=== PATIENT | female | born 1940 | race Caucasian/White ===

== ENCOUNTER 2020-03-24 09:02 | Inpatient (IN) ==
[2020-03-24] MEDS: Mirtazapine 15 MG TABLET PO SCH (23:05)
[2020-03-24] MEDS: Gabapentin 300 MG CAPSULE PO SCH (23:05)
[2020-03-24] MEDS: Amoxicillin 500 MG CAPSULE PO SCH (23:06)
[2020-03-25 05:48] LABS: Basophils % 0.1 %; Eosinophils % 0.5 %; Hematocrit 39.3 % (35.3-44.9); Hemoglobin 13.1 g/dL (11.5-15.4); Immature Granulocytes % 0.4 % (0-4); Mean Corpuscular HGB Conc 33.3 g/dL (31.6-35.5); Mean Corpuscular Hemoglobin 31.6 pg (28.0-33.3); Mean Corpuscular Volume 94.7 fL (83.0-100.0); Mean Platelet Volume 9.3 fL (9.4-12.4); Monocytes # 0.4 K/mcL (0.0-1.3); Monocytes % 5.3 %; Neutrophils # 5.7 K/mcL (1.6-8.9); Platelet Count 294 K/mcL (140-400); Red Blood Count 4.15 M/mcL (3.82-4.97); Red Cell Distribution Width 15.2 % (11.5-14.5); Segmented Neutrophils % 69.7 %; White Blood Count 8.2 K/mcL (4.3-11.1)
[2020-03-25 06:07] LABS: BUN/Creatinine Ratio 30 (6-26); Blood Urea Nitrogen 20 mg/dL (8-23); Calcium 9.4 mg/dL (8.6-10.3); Carbon Dioxide 29 mEq/L (23-29); Chloride 102 mEq/L (98-107); Glucose 95 mg/dL (70-105); Osmolality,Calculated 286 (280-300); Potassium 3.8 mEq/L (3.5-5.1); Sodium 137 mEq/L (136-145); eGFR For African Americans > 60 (> 60); eGFR For Non-African Americans > 60 (> 60)
[2020-03-25] MEDS: Aspirin Enteric Coated 81 MG Tablet PO SCH (10:43)
[2020-03-25] MEDS: Amoxicillin 500 MG CAPSULE PO SCH ×2 (10:43→22:13)
[2020-03-25] MEDS: Gabapentin 300 MG CAPSULE PO SCH ×3 (10:43→22:41)
[2020-03-25] MEDS: Acetaminophen 325 MG TABLET PO PRN (13:11)
[2020-03-25] MEDS ORDERED: Albuterol 2.5 MG/3 ML NEBULIZER IH PRN (16:45)
[2020-03-25] MEDS: Mirtazapine 15 MG TABLET PO SCH (22:13)
[2020-03-26 04:59] LABS: Basophils % 0.4 %; Eosinophils # 0.1 K/mcL (0.0-0.6); Eosinophils % 0.9 %; Hematocrit 40.7 % (35.3-44.9); Hemoglobin 13.6 g/dL (11.5-15.4); Immature Granulocytes % 0.4 % (0-4); Lymphocytes # 2.6 K/mcL (0.6-4.6); Mean Corpuscular HGB Conc 33.4 g/dL (31.6-35.5); Mean Corpuscular Hemoglobin 31.9 pg (28.0-33.3); Mean Corpuscular Volume 95.3 fL (83.0-100.0); Mean Platelet Volume 9.5 fL (9.4-12.4); Monocytes # 0.5 K/mcL (0.0-1.3); Monocytes % 5.4 %; Neutrophils # 5.8 K/mcL (1.6-8.9); Platelet Count 304 K/mcL (140-400); Red Blood Count 4.27 M/mcL (3.82-4.97); Red Cell Distribution Width 15.5 % (11.5-14.5); Segmented Neutrophils % 63.9 %; White Blood Count 9.1 K/mcL (4.3-11.1)
[2020-03-26] MEDS: *HR* Enoxaparin 40 MG/0.4 ML SYRINGE SQ SCH (05:13)
[2020-03-26 05:19] LABS: Alanine Aminotransferase 18 Units/L (7-52); Albumin 3.7 g/dL (3.5-5.7); Albumin/Globulin Ratio 1.4 (1.1-2.2); Alkaline Phosphatase 69 Units/L (34-104); Aspartate Amino Transferase 21 Units/L (13-39); BUN/Creatinine Ratio 32 (6-26); Bilirubin,Total 0.4 mg/dL (0.3-1.0); Blood Urea Nitrogen 20 mg/dL (8-23); Calcium 9.4 mg/dL (8.6-10.3); Carbon Dioxide 26 mEq/L (23-29); Chloride 104 mEq/L (98-107); Globulin 2.7 g/dL (2.4-3.5); Glucose 115 mg/dL (70-105); Osmolality,Calculated 290 (280-300); Potassium 3.9 mEq/L (3.5-5.1); Sodium 138 mEq/L (136-145); Total Protein 6.4 g/dL (6.4-8.9); eGFR For African Americans > 60 (> 60); eGFR For Non-African Americans > 60 (> 60)
[2020-03-26] MEDS: Gabapentin 300 MG CAPSULE PO SCH ×3 (08:11→20:38)
[2020-03-26] MEDS: Amoxicillin 500 MG CAPSULE PO SCH ×2 (08:11→20:37)
[2020-03-26] MEDS: Aspirin Enteric Coated 81 MG Tablet PO SCH (08:11)
[2020-03-26 15:10] LABS: C-Reactive Protein < 5 mg/L (Less than 10); Ferritin 33 ng/mL (10-120)
[2020-03-26] MEDS: Mirtazapine 15 MG TABLET PO SCH (20:37)
[2020-03-27] MEDS: *HR* Enoxaparin 40 MG/0.4 ML SYRINGE SQ SCH (06:11)
[2020-03-27] MEDS: Aspirin Enteric Coated 81 MG Tablet PO SCH (10:45)
[2020-03-27] MEDS: Gabapentin 300 MG CAPSULE PO SCH ×3 (11:05→22:33)
[2020-03-27] MEDS: Aspirin 81 MG TAB.CHEW PO SCH (11:06)
[2020-03-27] MEDS: Acetaminophen 325 MG TABLET PO PRN ×2 (11:06→22:33)
[2020-03-27] MEDS: Amoxicillin 500 MG CAPSULE PO SCH ×2 (11:06→22:33)
[2020-03-27] MEDS: Nystatin SUSP 5 ML UD.LIQ PO SCH (22:33)
[2020-03-27] MEDS: Mirtazapine 15 MG TABLET PO SCH (22:33)
[2020-03-28] MEDS: *HR* Enoxaparin 40 MG/0.4 ML SYRINGE SQ SCH (06:32)
[2020-03-28] MEDS: Nystatin SUSP 5 ML UD.LIQ PO SCH ×4 (09:26→22:11)
[2020-03-28] MEDS: Aspirin 81 MG TAB.CHEW PO SCH (09:26)
[2020-03-28] MEDS: Amoxicillin 500 MG CAPSULE PO SCH ×2 (09:26→22:11)
[2020-03-28] MEDS: Gabapentin 300 MG CAPSULE PO SCH ×3 (09:27→22:11)
[2020-03-28 13:18] LABS: Hematocrit 42.2 % (35.3-44.9); Mean Corpuscular HGB Conc 33.2 g/dL (31.6-35.5); Mean Corpuscular Hemoglobin 31.9 pg (28.0-33.3); Mean Corpuscular Volume 96.1 fL (83.0-100.0); Mean Platelet Volume 9.3 fL (9.4-12.4); Platelet Count 305 K/mcL (140-400); Red Blood Count 4.39 M/mcL (3.82-4.97); Red Cell Distribution Width 15.1 % (11.5-14.5); White Blood Count 8.6 K/mcL (4.3-11.1)
[2020-03-28 13:37] LABS: Alanine Aminotransferase 14 Units/L (7-52); Albumin 3.7 g/dL (3.5-5.7); Albumin/Globulin Ratio 1.3 (1.1-2.2); Alkaline Phosphatase 69 Units/L (34-104); Aspartate Amino Transferase 11 Units/L (13-39); BUN/Creatinine Ratio 39 (6-26); Bilirubin,Total 0.5 mg/dL (0.3-1.0); Blood Urea Nitrogen 28 mg/dL (8-23); Calcium 9.4 mg/dL (8.6-10.3); Carbon Dioxide 28 mEq/L (23-29); Chloride 104 mEq/L (98-107); Globulin 2.8 g/dL (2.4-3.5); Glucose 128 mg/dL (70-105); Magnesium 2.1 mg/dL (1.6-2.6); Osmolality,Calculated 293 (280-300); Potassium 3.8 mEq/L (3.5-5.1); Sodium 138 mEq/L (136-145); Total Protein 6.5 g/dL (6.4-8.9); eGFR For African Americans > 60 (> 60); eGFR For Non-African Americans > 60 (> 60)
[2020-03-28 13:48] LABS: Bilirubin,Urine Negative (Negative); Blood,Urine Moderate (Negative); Clarity,Urine Clear (Clear); Color,Urine Yellow (Yellow); Glucose,Urine (UA) Normal (Normal); Ketones,Urine Negative (Negative); Leukocyte Esterase,Urine Negative (Negative); Nitrite,Urine Negative (Negative); PH,Urine 5.5 pH Units (5.0-8.0); Protein,Urine Negative (Neg-Trace); Specific Gravity,Urine >= 1.030 (1.010-1.025); Urobilinogen,Urine Normal (Normal)
[2020-03-28 13:55] LABS: Squamous Epithelial Cell,Urine Many per hpf (None-Few)
[2020-03-28] MEDS: 0.9 % Sodium Chloride 1,000 ML IVC SCH (16:19)
[2020-03-28 19:58] LABS: Ferritin 54 ng/mL (10-120)
[2020-03-28] MEDS: Mirtazapine 15 MG TABLET PO SCH (22:11)
[2020-03-29] MEDS: 0.9 % Sodium Chloride 1,000 ML IVC SCH ×2 (02:32→13:18)
[2020-03-29] MEDS: *HR* Enoxaparin 40 MG/0.4 ML SYRINGE SQ SCH (06:29)
[2020-03-29] MEDS: Gabapentin 300 MG CAPSULE PO SCH ×3 (08:44→20:45)
[2020-03-29] MEDS: Amoxicillin 500 MG CAPSULE PO SCH ×2 (08:44→20:45)
[2020-03-29] MEDS: Aspirin 81 MG TAB.CHEW PO SCH (08:45)
[2020-03-29] MEDS: Nystatin SUSP 5 ML UD.LIQ PO SCH ×4 (08:45→20:45)
[2020-03-29] MEDS: Acetaminophen 325 MG TABLET PO PRN (13:25)
[2020-03-29] MEDS: Mirtazapine 15 MG TABLET PO SCH (20:45)
[2020-03-29 21:04] LABS: ABG Base Excess 0 mEq/L (-2 to 3); ABG HCO3 25 mEq/L (21-27); ABG Oxygen Saturation 96 % (95-98); ABG PCO2 44 mmHg (35-45); ABG PH 7.37 pH Units (7.32-7.45); ABG PO2 83 mmHg (85-104); ABG TCO2 27 mEq/L (20-26)
[2020-03-30] MEDS: 0.9 % Sodium Chloride 1,000 ML IVC SCH (01:10)
[2020-03-30] MEDS: *HR* Enoxaparin 40 MG/0.4 ML SYRINGE SQ SCH (05:56)
[2020-03-30] MEDS: Acetaminophen 325 MG TABLET PO PRN (06:34)
[2020-03-30] MEDS: Gabapentin 300 MG CAPSULE PO SCH ×3 (09:34→21:12)
[2020-03-30] MEDS: Aspirin 81 MG TAB.CHEW PO SCH (09:34)
[2020-03-30] MEDS: Nystatin SUSP 5 ML UD.LIQ PO SCH ×4 (09:34→21:12)
[2020-03-30] MEDS: Amoxicillin 500 MG CAPSULE PO SCH ×2 (09:35→21:12)
[2020-03-30] MEDS: Mirtazapine 15 MG TABLET PO SCH (21:12)
[2020-03-31] MEDS: *HR* Enoxaparin 40 MG/0.4 ML SYRINGE SQ SCH (06:18)
[2020-03-31] MEDS: Aspirin 81 MG TAB.CHEW PO SCH (12:47)
[2020-03-31] MEDS: Gabapentin 300 MG CAPSULE PO SCH ×3 (12:48→20:44)
[2020-03-31] MEDS: Amoxicillin 500 MG CAPSULE PO SCH ×2 (12:48→20:44)
[2020-03-31] MEDS: Nystatin SUSP 5 ML UD.LIQ PO SCH ×3 (12:49→20:43)
[2020-03-31] MEDS: Mirtazapine 15 MG TABLET PO SCH (20:48)
[2020-04-01] MEDS: *HR* Enoxaparin 40 MG/0.4 ML SYRINGE SQ SCH (06:08)
[2020-04-01] MEDS: 0.9 % Sodium Chloride 1,000 ML IVC SCH (07:47)
[2020-04-01] MEDS: Nystatin SUSP 5 ML UD.LIQ PO SCH ×5 (07:47→20:40)
[2020-04-01] MEDS: Gabapentin 300 MG CAPSULE PO SCH ×3 (10:32→20:38)
[2020-04-01] MEDS: Aspirin 81 MG TAB.CHEW PO SCH (10:32)
[2020-04-01] MEDS: Amoxicillin 500 MG CAPSULE PO SCH ×2 (10:32→20:37)
[2020-04-01] MEDS: Acetaminophen 325 MG TABLET PO PRN (10:33)
[2020-04-01] MEDS: Mirtazapine 15 MG TABLET PO SCH (20:39)
[2020-04-02] MEDS: *HR* Enoxaparin 40 MG/0.4 ML SYRINGE SQ SCH (05:14)
[2020-04-02] MEDS: Nystatin SUSP 5 ML UD.LIQ PO SCH ×4 (08:29→19:49)
[2020-04-02] MEDS: Amoxicillin 500 MG CAPSULE PO SCH ×2 (08:29→19:47)
[2020-04-02] MEDS: Aspirin 81 MG TAB.CHEW PO SCH (08:29)
[2020-04-02] MEDS: Gabapentin 300 MG CAPSULE PO SCH ×3 (08:29→19:48)
[2020-04-02] MEDS: Acetaminophen 325 MG TABLET PO PRN (08:38)
[2020-04-02] MEDS: Mirtazapine 15 MG TABLET PO SCH (19:45)
[2020-04-03 05:08] LABS: Basophils % 0.5 %; Eosinophils # 0.2 K/mcL (0.0-0.6); Eosinophils % 2.1 %; Hematocrit 38.5 % (35.3-44.9); Hemoglobin 12.7 g/dL (11.5-15.4); Immature Granulocytes % 0.3 % (0-4); Lymphocytes # 1.7 K/mcL (0.6-4.6); Lymphocytes % 19.3 %; Mean Corpuscular Hemoglobin 31.7 pg (28.0-33.3); Mean Platelet Volume 9.7 fL (9.4-12.4); Monocytes # 0.5 K/mcL (0.0-1.3); Monocytes % 6.1 %; Neutrophils # 6.2 K/mcL (1.6-8.9); Platelet Count 282 K/mcL (140-400); Red Blood Count 4.01 M/mcL (3.82-4.97); Red Cell Distribution Width 14.4 % (11.5-14.5); Segmented Neutrophils % 71.7 %; White Blood Count 8.7 K/mcL (4.3-11.1)
[2020-04-03] MEDS: *HR* Enoxaparin 40 MG/0.4 ML SYRINGE SQ SCH (05:17)
[2020-04-03 05:19] LABS: BUN/Creatinine Ratio 37 (6-26); Blood Urea Nitrogen 21 mg/dL (8-23); Calcium 9.4 mg/dL (8.6-10.3); Carbon Dioxide 28 mEq/L (23-29); Chloride 106 mEq/L (98-107); Glucose 106 mg/dL (70-105); Osmolality,Calculated 295 (280-300); Potassium 3.7 mEq/L (3.5-5.1); Sodium 141 mEq/L (136-145); eGFR For African Americans > 60 (> 60); eGFR For Non-African Americans > 60 (> 60)
[2020-04-03] MEDS: Amoxicillin 500 MG CAPSULE PO SCH (09:33)
[2020-04-03] MEDS: Aspirin 81 MG TAB.CHEW PO SCH (09:33)
[2020-04-03] MEDS: Nystatin SUSP 5 ML UD.LIQ PO SCH ×4 (09:34→20:23)
[2020-04-03] MEDS: Gabapentin 300 MG CAPSULE PO SCH ×3 (09:34→20:20)
[2020-04-03] MEDS: Acetaminophen 325 MG TABLET PO PRN (15:33)
[2020-04-03] MEDS: Mirtazapine 15 MG TABLET PO SCH (20:22)
[2020-04-04] MEDS: *HR* Enoxaparin 40 MG/0.4 ML SYRINGE SQ SCH (05:24)
[2020-04-04] MEDS: Nystatin SUSP 5 ML UD.LIQ PO SCH ×4 (08:24→20:02)
[2020-04-04] MEDS: Acetaminophen 325 MG TABLET PO PRN ×2 (08:24→21:14)
[2020-04-04] MEDS: Gabapentin 300 MG CAPSULE PO SCH ×3 (08:24→20:02)
[2020-04-04] MEDS: Aspirin 81 MG TAB.CHEW PO SCH (08:24)
[2020-04-04] MEDS ORDERED: E-Z-HD (BARIUM SULF) SUSPENSION PO ONE (13:24)
[2020-04-04] MEDS ORDERED: E-Z-PAQUE (BARIUM SULF) SUSP 1 BOTTLE PO ONE (13:24)
[2020-04-04] MEDS: Mirtazapine 15 MG TABLET PO SCH (20:02)
[2020-04-05] MEDS: *HR* Enoxaparin 40 MG/0.4 ML SYRINGE SQ SCH (05:25)
[2020-04-05] MEDS: Gabapentin 300 MG CAPSULE PO SCH ×3 (08:55→22:13)
[2020-04-05] MEDS: Nystatin SUSP 5 ML UD.LIQ PO SCH ×4 (08:55→22:15)
[2020-04-05] MEDS: Aspirin 81 MG TAB.CHEW PO SCH (08:55)
[2020-04-05] MEDS: Acetaminophen 325 MG TABLET PO PRN ×2 (09:05→22:14)
[2020-04-05] MEDS: Mirtazapine 15 MG TABLET PO SCH (22:13)
[2020-04-06] MEDS: *HR* Enoxaparin 40 MG/0.4 ML SYRINGE SQ SCH (06:48)
[2020-04-06] MEDS: Aspirin 81 MG TAB.CHEW PO SCH (08:50)
[2020-04-06] MEDS: Gabapentin 300 MG CAPSULE PO SCH ×3 (08:50→19:41)
[2020-04-06] MEDS: Nystatin SUSP 5 ML UD.LIQ PO SCH (08:50)
[2020-04-06] MEDS: Acetaminophen 325 MG TABLET PO PRN ×2 (08:55→19:41)
[2020-04-06] MEDS: Mirtazapine 15 MG TABLET PO SCH (19:42)
[2020-04-07] MEDS: *HR* Enoxaparin 40 MG/0.4 ML SYRINGE SQ SCH (05:52)
[2020-04-07] MEDS: Acetaminophen 325 MG TABLET PO PRN ×2 (06:06→20:57)
[2020-04-07] MEDS: Gabapentin 300 MG CAPSULE PO SCH ×3 (09:32→21:02)
[2020-04-07] MEDS: Aspirin 81 MG TAB.CHEW PO SCH (09:32)
[2020-04-07] MEDS: Mirtazapine 15 MG TABLET PO SCH (21:02)
[2020-04-08 06:02] LABS: Hematocrit 32.5 % (35.3-44.9); Hemoglobin 10.6 g/dL (11.5-15.4); Mean Corpuscular HGB Conc 32.6 g/dL (31.6-35.5); Mean Corpuscular Hemoglobin 31.5 pg (28.0-33.3); Mean Corpuscular Volume 96.7 fL (83.0-100.0); Mean Platelet Volume 10.1 fL (9.4-12.4); Platelet Count 230 K/mcL (140-400); Red Blood Count 3.36 M/mcL (3.82-4.97); Red Cell Distribution Width 14.4 % (11.5-14.5); White Blood Count 5.4 K/mcL (4.3-11.1)
[2020-04-08 07:31] LABS: BUN/Creatinine Ratio 33 (6-26); Blood Urea Nitrogen 20 mg/dL (8-23); Calcium 9.1 mg/dL (8.6-10.3); Carbon Dioxide 29 mEq/L (23-29); Chloride 105 mEq/L (98-107); Glucose 100 mg/dL (70-105); Osmolality,Calculated 293 (280-300); Potassium 3.7 mEq/L (3.5-5.1); Sodium 140 mEq/L (136-145); eGFR For African Americans > 60 (> 60); eGFR For Non-African Americans > 60 (> 60)
[2020-04-08] MEDS: Gabapentin 300 MG CAPSULE PO SCH ×3 (09:11→21:24)
[2020-04-08] MEDS: Aspirin 81 MG TAB.CHEW PO SCH (09:11)
[2020-04-08] MEDS: Acetaminophen 325 MG TABLET PO PRN ×2 (09:11→21:22)
[2020-04-08 19:06] LABS: Bilirubin,Urine Small (Negative); Blood,Urine Large (Negative); Clarity,Urine Clear (Clear); Color,Urine Yellow (Yellow); Glucose,Urine (UA) Normal (Normal); Ketones,Urine Negative (Negative); Leukocyte Esterase,Urine Trace (Negative); Nitrite,Urine Negative (Negative); PH,Urine 6.5 pH Units (5.0-8.0); Protein,Urine 30 mg/dL (Neg-Trace); Urobilinogen,Urine Normal (Normal)
[2020-04-08 19:46] LABS: RBC,Urine TNTC per hpf (0-3)
[2020-04-08 19:47] LABS: Bacteria,Urine Many per hpf (None-Few); Squamous Epithelial Cell,Urine Moderate per hpf (None-Few)
[2020-04-08] MEDS: Mirtazapine 15 MG TABLET PO SCH (21:23)
[2020-04-09] MEDS: Acetaminophen 325 MG TABLET PO PRN ×2 (06:27→20:14)
[2020-04-09] MEDS: Aspirin 81 MG TAB.CHEW PO SCH (08:32)
[2020-04-09] MEDS: Gabapentin 300 MG CAPSULE PO SCH ×3 (08:32→20:14)
[2020-04-09] MEDS: Sulfamethoxazole/Trimeth DS 1 EACH TABLET PO SCH ×2 (14:41→20:14)
[2020-04-09] MEDS: Mirtazapine 15 MG TABLET PO SCH (20:14)
[2020-04-10] MEDS: Acetaminophen 325 MG TABLET PO PRN ×2 (10:07→20:32)
[2020-04-10] MEDS: Gabapentin 300 MG CAPSULE PO SCH ×3 (10:08→20:33)
[2020-04-10] MEDS: Aspirin 81 MG TAB.CHEW PO SCH (10:08)
[2020-04-10] MEDS: Sulfamethoxazole/Trimeth DS 1 EACH TABLET PO SCH ×2 (10:08→20:33)
[2020-04-10] MEDS: Mirtazapine 15 MG TABLET PO SCH (20:33)
[2020-04-11] MEDS: Aspirin 81 MG TAB.CHEW PO SCH (09:51)
[2020-04-11] MEDS: Sulfamethoxazole/Trimeth DS 1 EACH TABLET PO SCH (09:51)
[2020-04-11] MEDS: Gabapentin 300 MG CAPSULE PO SCH ×3 (09:51→21:57)
[2020-04-11] MEDS: Acetaminophen 325 MG TABLET PO PRN ×2 (10:34→17:18)
[2020-04-11] MEDS: Nitrofurantoin (BID) 100 MG CAPSULE PO SCH ×2 (11:47→17:18)
[2020-04-11] MEDS: Mirtazapine 15 MG TABLET PO SCH (21:57)
[2020-04-12] MEDS: Aspirin 81 MG TAB.CHEW PO SCH (08:52)
[2020-04-12] MEDS: Gabapentin 300 MG CAPSULE PO SCH ×3 (08:52→20:34)
[2020-04-12] MEDS: Nitrofurantoin (BID) 100 MG CAPSULE PO SCH ×2 (08:53→16:34)
[2020-04-12] MEDS: Mirtazapine 15 MG TABLET PO SCH (20:34)
[2020-04-12] MEDS: Acetaminophen 325 MG TABLET PO PRN (20:35)
[2020-04-13] MEDS: Nitrofurantoin (BID) 100 MG CAPSULE PO SCH ×2 (09:48→16:13)
[2020-04-13] MEDS: Aspirin 81 MG TAB.CHEW PO SCH (09:48)
[2020-04-13] MEDS: Gabapentin 300 MG CAPSULE PO SCH ×3 (09:49→21:23)
[2020-04-13] MEDS: Acetaminophen 325 MG TABLET PO PRN (09:57)
[2020-04-13] MEDS: Mirtazapine 15 MG TABLET PO SCH (21:23)
[2020-04-14 06:22] LABS: Hemoglobin 9.8 g/dL (11.5-15.4); Mean Corpuscular HGB Conc 32.7 g/dL (31.6-35.5); Mean Corpuscular Hemoglobin 31.8 pg (28.0-33.3); Mean Corpuscular Volume 97.4 fL (83.0-100.0); Platelet Count 256 K/mcL (140-400); Red Blood Count 3.08 M/mcL (3.82-4.97); Red Cell Distribution Width 14.2 % (11.5-14.5); White Blood Count 8.7 K/mcL (4.3-11.1)
[2020-04-14 06:46] LABS: Alanine Aminotransferase 9 Units/L (7-52); Albumin 3.5 g/dL (3.5-5.7); Albumin/Globulin Ratio 1.4 (1.1-2.2); Alkaline Phosphatase 73 Units/L (34-104); Aspartate Amino Transferase 13 Units/L (13-39); BUN/Creatinine Ratio 22 (6-26); Blood Urea Nitrogen 13 mg/dL (8-23); Calcium 8.8 mg/dL (8.6-10.3); Carbon Dioxide 27 mEq/L (23-29); Chloride 102 mEq/L (98-107); Globulin 2.5 g/dL (2.4-3.5); Glucose 99 mg/dL (70-105); Magnesium 1.9 mg/dL (1.6-2.6); Osmolality,Calculated 282 (280-300); Potassium 3.8 mEq/L (3.5-5.1); Sodium 136 mEq/L (136-145); eGFR For African Americans > 60 (> 60); eGFR For Non-African Americans > 60 (> 60)
[2020-04-14 06:59] LABS: Bilirubin,Total 0.3 mg/dL (0.3-1.0)
[2020-04-14] MEDS: Aspirin 81 MG TAB.CHEW PO SCH (09:24)
[2020-04-14] MEDS: Nitrofurantoin (BID) 100 MG CAPSULE PO SCH ×2 (09:24→17:41)
[2020-04-14] MEDS: Gabapentin 300 MG CAPSULE PO SCH ×3 (09:24→22:20)
[2020-04-14] MEDS: Acetaminophen 325 MG TABLET PO PRN (13:41)
[2020-04-14] MEDS: Mirtazapine 15 MG TABLET PO SCH (22:21)
[2020-04-15] MEDS: Gabapentin 300 MG CAPSULE PO SCH ×3 (09:25→20:04)
[2020-04-15] MEDS: Acetaminophen 325 MG TABLET PO PRN ×2 (09:26→20:06)
[2020-04-15] MEDS: Nitrofurantoin (BID) 100 MG CAPSULE PO SCH ×2 (09:26→17:04)
[2020-04-15] MEDS: Aspirin 81 MG TAB.CHEW PO SCH (09:26)
[2020-04-15] MEDS: Mirtazapine 15 MG TABLET PO SCH (20:04)
[2020-04-16] MEDS: Gabapentin 300 MG CAPSULE PO SCH ×3 (09:55→20:44)
[2020-04-16] MEDS: Aspirin 81 MG TAB.CHEW PO SCH (09:55)
[2020-04-16] MEDS: Nitrofurantoin (BID) 100 MG CAPSULE PO SCH ×2 (09:55→16:12)
[2020-04-16] MEDS: Acetaminophen 325 MG TABLET PO PRN (10:23)
[2020-04-16] MEDS: Mirtazapine 15 MG TABLET PO SCH (20:44)
[2020-04-17] MEDS: Acetaminophen 325 MG TABLET PO PRN ×2 (11:05→22:13)
[2020-04-17] MEDS: Aspirin 81 MG TAB.CHEW PO SCH (11:05)
[2020-04-17] MEDS: Gabapentin 300 MG CAPSULE PO SCH ×3 (11:05→22:13)
[2020-04-17] MEDS: Nitrofurantoin (BID) 100 MG CAPSULE PO SCH ×2 (11:06→17:03)
[2020-04-17] MEDS: Mirtazapine 15 MG TABLET PO SCH (22:13)
[2020-04-18] MEDS: Acetaminophen 325 MG TABLET PO PRN ×2 (09:20→16:30)
[2020-04-18] MEDS: Nitrofurantoin (BID) 100 MG CAPSULE PO SCH (09:20)
[2020-04-18] MEDS: Gabapentin 300 MG CAPSULE PO SCH ×3 (09:20→20:28)
[2020-04-18] MEDS: Aspirin 81 MG TAB.CHEW PO SCH (09:20)
[2020-04-18] MEDS: Mirtazapine 15 MG TABLET PO SCH (20:28)
[2020-04-19] MEDS: Gabapentin 300 MG CAPSULE PO SCH ×3 (08:32→22:24)
[2020-04-19] MEDS: Aspirin 81 MG TAB.CHEW PO SCH (08:32)
[2020-04-19] MEDS: Acetaminophen 325 MG TABLET PO PRN (08:45)
[2020-04-19] MEDS: Mirtazapine 15 MG TABLET PO SCH (22:24)
[2020-04-20] MEDS: Aspirin 81 MG TAB.CHEW PO SCH (08:30)
[2020-04-20] MEDS: Gabapentin 300 MG CAPSULE PO SCH ×3 (08:30→22:20)
[2020-04-20] MEDS: Acetaminophen 325 MG TABLET PO PRN (08:39)
[2020-04-20 09:29] LABS: Basophils # 0.1 K/mcL (0.0-0.2); Basophils % 0.9 %; Eosinophils # 0.4 K/mcL (0.0-0.6); Eosinophils % 6.3 %; Hematocrit 33.9 % (35.3-44.9); Hemoglobin 11.1 g/dL (11.5-15.4); Immature Granulocytes % 0.1 % (0-4); Lymphocytes # 1.6 K/mcL (0.6-4.6); Lymphocytes % 23.7 %; Mean Corpuscular HGB Conc 32.7 g/dL (31.6-35.5); Mean Corpuscular Hemoglobin 32.4 pg (28.0-33.3); Mean Corpuscular Volume 98.8 fL (83.0-100.0); Mean Platelet Volume 9.5 fL (9.4-12.4); Monocytes # 0.5 K/mcL (0.0-1.3); Monocytes % 6.9 %; Neutrophils # 4.3 K/mcL (1.6-8.9); Platelet Count 334 K/mcL (140-400); Red Blood Count 3.43 M/mcL (3.82-4.97); Red Cell Distribution Width 13.7 % (11.5-14.5); Segmented Neutrophils % 62.1 %; White Blood Count 6.9 K/mcL (4.3-11.1)
[2020-04-20 09:45] LABS: BUN/Creatinine Ratio 17 (6-26); Blood Urea Nitrogen 12 mg/dL (8-23); Calcium 9.3 mg/dL (8.6-10.3); Carbon Dioxide 24 mEq/L (23-29); Chloride 103 mEq/L (98-107); Glucose 130 mg/dL (70-105); Osmolality,Calculated 284 (280-300); Sodium 136 mEq/L (136-145); eGFR For African Americans > 60 (> 60); eGFR For Non-African Americans > 60 (> 60)
[2020-04-20] MEDS: Mirtazapine 15 MG TABLET PO SCH (22:20)
[2020-04-21 08:00] VITALS: BP 101/55
[2020-04-21] MEDS: Aspirin 81 MG TAB.CHEW PO SCH (09:03)
[2020-04-21] MEDS: Acetaminophen 325 MG TABLET PO PRN (09:03)
[2020-04-21] MEDS: Gabapentin 300 MG CAPSULE PO SCH ×2 (09:03→15:48)
== END 2020-04-21 15:58 | disposition home health service (06) | DRG 56 ==
LOC: INPGRE 17:36
PROVIDERS: ADMIT Family Medicine; ATTEND Family Medicine